=== PATIENT | male | born 1965 | race African-American/Black ===

== ENCOUNTER → 2018-07-10 | Outpatient (CLI) | payer OTHER ==
--- NOTE | 2018-07-10 13:22 | KCIC ---
MRI Lumbar Spine without contrast History: Lumbar radiculopathy, chronic low back pain off and on, previous surgery Technique: Multiplanar, multi sequential noncontrast MR imaging was performed of the lumbar spine. Comparison: None Findings: Lumbar vertebral body stature is overall maintained. There is small inferior L4 Schmorl's node, associated mild edema. AP alignment is within normal limits. Conus terminates at L1-2. There is [id number] degenerative disc disease at L4-5, mild disc desiccation L5-S1. L3-L4: There is prominence of posterior epidural fat. There is mild buckling of the ligamentum flavum and [id number]-wk-moeunxex facet degenerative change. There is minimal disc osteophyte complex. Spinal canal is overall adequate. Right neural foramen is adequate. There is small extrusion extending above the intervertebral disc space in the inferior distal left neural foramen and left extraforaminal region estimated about 7 mm CC by about 7 to 8 mm AP by 12 mm transverse. There is contact of the undersurface exiting left L3 nerve root in the more distal neural foramen and extraforaminal region, moderate to severe narrowing of the more distal left neural foramen. L4-L5: There is mild facet degenerative change and buckling of the ligamentum flavum. There is a small laminectomy defect on the left. There is minimal disc osteophyte complex and bulge. There is mild prominence of posterior epidural fat. There is overall mild attenuation of the thecal sac in part from posterior epidural lipomatosis. There is wlty-re-pwrnuttt narrowing of the neural foramina bilaterally mostly from disc osteophyte complex. L5-S1: There is negligible disc osteophyte complex and bulge. There is mild buckling of the ligamentum flavum and facet degenerative change. Spinal canal is overall adequate. There is moderate to severe left and mild right neural foramina compromise due to disc osteophyte complex and facet degenerative change. Impression: 1. There is narrowing of the inferior distal left L3-4 neural foramen by extrusion extending slightly above the intervertebral disc space extending to the proximal extraforaminal region with contact of the exiting left L3 nerve root. There is other neural foramina compromise as described greatest on the left at L5-S1, to a lesser degree bilaterally at L4-5 and on the right at L5-S1. 2. There is mild to moderate degenerative disc disease at L4-5. There is mild spondylosis L3-4 to L5-S1. Electronically signed by: Allan Swift MD (07/10/2018 1:18 PM) [id number]
== END | disposition home or self-care (01) ==
LOC: KCIC MRI 11:46
PROVIDERS: ATTEND Pain Medicine Pain Medicine
DX: M48.061 Spinal stenosis, lumbar region without neurogenic claudication (principal); M47.896 Other spondylosis, lumbar region; M51.36 Other intervertebral disc degeneration, lumbar region; M51.26 Other intervertebral disc displacement, lumbar region; M25.78 Osteophyte, vertebrae; M51.46 Schmorl's nodes, lumbar region; R60.0 Localized edema
CPT/HCPCS: 72148

== ENCOUNTER 2021-05-31 02:53 | Emergency (ER) | payer BC, OTHER ==
[~2021-05-31] VITALS: Ht 188 cm; Wt 102.0 kg
[2021-05-31] MEDS ORDERED: KETOROLAC 15 MG/ML VIAL. IVP ONE (04:00)
[2021-05-31 04:26] LABS: BASO # 0.1 x10^3/uL (0.0-0.2); BASO % 1 % (0-3); EOS # 0.4 x10^3/uL (0.0-0.7); EOS % 3 % (0-3); HEMATOCRIT 48.6 % (39.0-53.0); HEMOGLOBIN 16.6 g/dL (13.0-17.5); LYMPH # 1.8 x10^3/uL (1.0-4.8); LYMPH % 14 % (24-48); MEAN CORPUSCULAR HEMOGLOBIN 33 pg (25-35); MEAN CORPUSCULAR HGB CONC 34 g/dL (31-37); MEAN CORPUSCULAR VOLUME 96 fL (79-100); MONO # 0.8 x10^3/uL (0.0-1.1); MONO % 6 % (0-9); NEUT # 9.4 x10^3/uL (1.8-7.7); NEUT % 76 % (31-73); PLATELET COUNT 185 x10^3/uL (140-400); RED BLOOD COUNT 5.07 x10^6/uL (4.30-5.70); WHITE BLOOD COUNT 12.4 x10^3/uL (4.0-11.0)
[2021-05-31 04:43] LABS: CALCIUM 8.4 mg/dL (8.5-10.1); GFR 93.2; POTASSIUM 4.1 mmol/L (3.5-5.1)
[2021-05-31 04:49] LABS: ALBUMIN 3.4 g/dL (3.4-5.0); ALBUMIN/GLOBULIN RATIO 0.8 (1.0-1.7); TOTAL BILIRUBIN 0.5 mg/dL (0.2-1.0); TOTAL PROTEIN 7.8 g/dL (6.4-8.2)
[2021-05-31] MEDS ORDERED: CONTRAST GIVEN. MC PRN (05:00)
[2021-05-31] MEDS ORDERED: IOHEXOL 300 MG/ML 100ML VIAL. IV ONE (05:30)
--- NOTE | 2021-05-31 05:32 | RAD ---
CT NECK SOFT TISSUE WITH IV CONTRAST DATE: 05/31/2021 4:50 AM INDICATION: question parotid sialoadenitis? R lower posterior facial / neck swelling TECHNIQUE: Axial computed tomography of the neck with intravenous contrast according to the standard neck protocol. One or more of the following dose reduction techniques were utilized: Automated expos ure control (AEC), Adjustment of mA and/or kV according to patient size, Use of iterative reconstruct ion technique such as ASiR, CT scan done according to ALARA and image gently/image wisely COMPARISON: None. FINDINGS: Asymmetric enlargement and heterogeneous enhancement of the right parotid gland. Small hypoenhancing region inferiorly within the gland. Abnormal enhancement extends along the parotid duct. No opaque st one is seen. Scattered subcentimeter lymph nodes are seen in the neck. None are pathologically enlarged or abnorma lly enhancing. The left parotid, submandibular, and thyroid glands are normal. The muscles of the nec k are normal. Vessels of the neck demonstrate normal course, caliber, and enhancement. The visualized posterior fossa and brain is unremarkable. The visualized orbits and paranasal sinuses are normal. Mild multilevel degenerative disc desiccation. Multilevel spinal canal stenosis secondary to disc pro trusions and marginal osteophytes. Multilevel neural foraminal narrowing secondary to uncovertebral a nd facet arthrosis. The visualized lung apices demonstrate paraseptal emphysema. IMPRESSION: Enlarged heterogeneously enhancing right parotid gland, likely parotiditis. Small hypoenhancing regio n inferiorly within the gland, which could represent phlegmon or an intraparotid lymph node. Abnormal enhancement extends along the parotid duct, but no radiopaque stone is seen. Electronically signed by: Allan Stevenson MD (05/31/2021 5:30 AM) [facility]
[2021-05-31 06:04] VITALS: BP 155/85
[2021-05-31] MEDS ORDERED: AMOX1TAB61 PO (06:17)
[2021-05-31] MEDS ORDERED: DICL50TA2 PO (06:17)
--- NOTE | 2021-05-31 06:18 | PHYS DOC ---
Past Medical History Past Medical History: No Pertinent History Past Surgical History: Other Additional Past Surgical Histo: BACK Smoking Status: Current Every Day Smoker Alcohol Use: Occasionally Drug Use: None Adult General Chief Complaint Chief Complaint: DENTAL PROBLEM HPI HPI The patient is a 56-year-old male who is otherwise healthy. He presents for evaluation of 2 days of swelling and discomfort focally to his left face posteriorly in a position which suggests probable parotid gland involvement. No fevers, nausea or vomiting, upper respiratory congestion/rhinorrhea, cough, sore throat, difficulty swallowing or breathing, shortness of breath, abdominal pain, scrotal or testicular pain or swelling. Patient is speaking comfortably in full sentences in a normal tone of voice. Vital signs are appropriate here. Review of Systems Review of Systems A 12 point review of systems was completed and was negative except for noted in HPI above. Current Medications Current Medications Current Medications Medications (Trade) Dose Ordered Sig/Josue Start Time Stop Time Status Last Admin Dose Admin Info (CONTRAST GIVEN -- Rx MONITORING) 1 each PRN DAILY PRN 05/31/21 05:00 06/02/21 04:59 Iohexol (Omnipaque 300 Mg/ml) 70 ml 1X ONCE 05/31/21 05:30 05/31/21 05:31 DC 05/31/21 05:04 70 ML Ketorolac Tromethamine (Toradol 15mg Vial) 15 mg 1X ONCE 05/31/21 04:00 05/31/21 04:01 DC 05/31/21 04:33 15 MG Allergies Allergies Allergies Coded Allergies Type Severity Reaction Last Updated Verified No Known Drug Allergies 08/28/14 No Physical Exam Physical Exam Well-appearing 56-year-old male appearing nontoxic and in no acute distress. Head is normocephalic and atraumatic. Neck is supple and nontender. Oropharynx is moist. There is mild tenderness and swelling to the posterior left cheek and upper left lateral neck in a position which suggests likely parotitis. No posterior oropharyngeal erythema, tonsillar exudate or swelling or uvular deviation. Patient tolerating secretions normally and speaking comfortably in a normal tone of voice. Lungs are clear to auscultation at all stations. There is a normal S1 and S2 without rubs or gallops and capillary refill is appropriate, less than 2 seconds globally. Abdomen is soft, nontender nondistended. Skin is warm and dry without cyanosis, clubbing or edema. Psychiatrically, the patient demonstrates appropriate mood and affect and is alert. Current Patient Data Vital Signs Vital Signs Date Time Temp Pulse Resp B/P (MAP) Pulse Ox O2 Delivery O2 Flow Rate FiO2 05/31/21 04:00 98.6 80 20 142/100 (114) Room Air 98.6 Lab Values Laboratory Tests Test 05/31/21 04:18 White Blood Count 12.4 x10^3/uL (4.0-11.0) H Red Blood Count 5.07 x10^6/uL (4.30-5.70) Hemoglobin 16.6 g/dL (13.0-17.5) Hematocrit 48.6 % (39.0-53.0) Mean Corpuscular Volume 96 fL (79-100) Mean Corpuscular Hemoglobin 33 pg (25-35) Mean Corpuscular Hemoglobin Concent 34 g/dL (31-37) Red Cell Distribution Width 14.0 % (11.5-14.5) Platelet Count 185 x10^3/uL (140-400) Neutrophils (%) (Auto) 76 % (31-73) H Lymphocytes (%) (Auto) 14 % (24-48) L Monocytes (%) (Auto) 6 % (0-9) Eosinophils (%) (Auto) 3 % (0-3) Basophils (%) (Auto) 1 % (0-3) Neutrophils # (Auto) 9.4 x10^3/uL (1.8-7.7) H Lymphocytes # (Auto) 1.8 x10^3/uL (1.0-4.8) Monocytes # (Auto) 0.8 x10^3/uL (0.0-1.1) Eosinophils # (Auto) 0.4 x10^3/uL (0.0-0.7) Basophils # (Auto) 0.1 x10^3/uL (0.0-0.2) Erythrocyte Sedimentation Rate 13 (0-15) Sodium Level 138 mmol/L (136-145) Potassium Level 4.1 mmol/L (3.5-5.1) Chloride Level 103 mmol/L (98-107) Carbon Dioxide Level 24 mmol/L (21-32) Anion Gap 11 (6-14) Blood Urea Nitrogen 18 mg/dL (8-26) Creatinine 1.0 mg/dL (0.7-1.3) Estimated GFR (Cockcroft-Gault) 93.2 BUN/Creatinine Ratio 18 (6-20) Glucose Level 98 mg/dL (70-99) Calcium Level 8.4 mg/dL (8.5-10.1) L Total Bilirubin 0.5 mg/dL (0.2-1.0) Aspartate Amino Transferase (AST) 44 U/L (15-37) H Alanine Aminotransferase (ALT) 60 U/L (16-63) Alkaline Phosphatase 62 U/L (46-116) C-Reactive Protein, Quantitative 14.0 mg/L (0-3.3) H Total Protein 7.8 g/dL (6.4-8.2) Albumin 3.4 g/dL (3.4-5.0) Albumin/Globulin Ratio 0.8 (1.0-1.7) L Amylase Level 228 U/L (25-115) H Laboratory Tests 05/31/21 04:18 Laboratory Tests 05/31/21 04:18 EKG EKG [] Radiology/Procedures Radiology/Procedures CT NECK SOFT TISSUE WITH IV CONTRAST DATE: 05/31/2021 4:50 AM INDICATION: question parotid sialoadenitis? R lower posterior facial / neck s welling TECHNIQUE: Axial computed tomography of the neck with intravenous contrast according to the standard neck protocol. One or more of the following dose reduction techniques were utilized: Automated exposure control (AEC), Adjustment of mA and/or kV according to patient size, Use of iterative reconstruction technique such as ASiR, CT scan done according to ALARA and image gently/image wisely COMPARISON: None. FINDINGS: Asymmetric enlargement and heterogeneous enhancement of the right parotid gland. Small hypoenhancing region inferiorly within the gland. Abnormal enhancement extends along the parotid duct. No opaque stone is seen. Scattered subcentimeter lymph nodes are seen in the neck. None are pathologically enlarged or abnormally enhancing. The left parotid, submandibular, and thyroid glands are normal. The muscles of the neck are normal. Vessels of the neck demonstrate normal course, caliber, and enhancement. The visualized posterior fossa and brain is unremarkable. The visualized orbits and paranasal sinuses are normal. Mild multilevel degenerative disc desiccation. Multilevel spinal canal stenosis secondary to disc protrusions and marginal osteophytes. Multilevel neural foraminal narrowing secondary to uncovertebral and facet arthrosis. The visualized lung apices demonstrate paraseptal emphysema. IMPRESSION: Enlarged heterogeneously enhancing right parotid gland, likely parotiditis. Small hypoenhancing region inferiorly within the gland, which could represent phlegmon or an intraparotid lymph node. Abnormal enhancement extends along the parotid duct, but no radiopaque stone is seen. Electronically signed by: Blake King MD (05/31/2021 5:30 AM) [facility] DICTATED and SIGNED BY: BLAKE KING MD DATE: 05/31/21 [id number] 0 Course & Med Decision Making Course & Med Decision Making Labs and imaging are suggestive of a mild acute parotitis. Have given a dose of dexamethasone here to address inflammation and discomfort. Will discharge with diclofenac and a course of Augmentin. Patient is to follow-up closely with primary in the next couple of days and return to the emergency department right away if symptoms worsen or if other new symptoms of concern develop. All questions are answered. Dragon Disclaimer Dragon Disclaimer This electronic medical record was generated, in whole or in part, using a voice recognition dictation system. Departure Departure Impression: Primary Impression: Parotitis, acute Disposition: HOME / SELF CARE / HOMELESS Condition: GOOD Referrals: NO PCP (PCP) Patient Instructions: Parotitis Additional Instructions: Follow-up very closely with your primary care doctor in the office in the next 1 to 2 days for a reevaluation of your symptoms and to discussion of next best steps in care. Begin taking the diclofenac anti-inflammatory medication 3 times a day on a schedule for the next 3 to 5 days, with food to prevent stomach upset, and then as needed after that, for pain. Take the Augmentin antibiotic twice a day for the next 10 days. Drink plenty of fluids. Return to the emergency department right away for worsening symptoms of any kind or with any other new symptoms of concern. Scripts Amoxicillin/Potassium Clav (AUGMENTIN 875-125 TABLET) 1 Each Tablet 1 TAB PO Q12HR, #20 TAB Prov: LOIS WAGNER MD 05/31/21 Diclofenac Potassium (DICLOFENAC POTASSIUM) 50 Mg Tablet 1 TAB PO PRN TID PRN for PAIN, #30 TAB Prov: LOIS WAGNER MD 05/31/21 LOIS WAGNER MD May 31, 2021 06:17
[2021-05-31] MEDS ORDERED: AMOXICILLIN/K CLAV 875/125MG TABLET. PO ONE (06:30)
[2021-05-31] MEDS ORDERED: DEXAMETHASONE SOD PHOS 4 MG/ML VIAL PO ONE (06:30)
== END 2021-05-31 06:25 | disposition home or self-care (01) ==
LOC: ER 02:53
DX: K11.21 Acute sialoadenitis (principal); F17.200 Nicotine dependence, unspecified, uncomplicated
CPT/HCPCS: 36415; 70491; 80053; 82150; 85025; 85651; 86140; 96374; 99285; J1885; Q9967